=== PATIENT | female | born 1990 | race Caucasian/White ===

== ENCOUNTER 2021-11-11 17:17 | Emergency (ER) | payer OTHER ==
[~2021-11-11] VITALS: Ht 162.6 cm; Wt 68.9 kg
[2021-11-11] MEDS ORDERED: [UNRECOGNIZED DRUG - OTHER] PO (18:00)
== END 2021-11-11 19:01 | disposition home or self-care (01) ==
LOC: ER 17:17
DX: T16.1XXA Foreign body in right ear, initial encounter (principal); X58.XXXA Exposure to other specified factors, initial encounter; Y92.89 Other specified places as the place of occurrence of the external cause; Y99.8 Other external cause status